=== PATIENT | female | born 1990 | race African-American/Black ===

== ENCOUNTER 2017-08-29 12:50 | Emergency (ER) | payer SELFPAY ==
[2017-08-29] MEDS ORDERED: Ibuprofen 800 MG TAB ONE (13:14)
--- NOTE | 2017-08-29 14:48 | RAD ---
CHEST PA AND LATERAL: History: 27-year-old female with history of cough, congestion, body aches, chills, and headache. FINDINGS: Heart size is within normal limits. The lungs are clear. No confluent pneumonia, overt edema, or pleu ral effusion. IMPRESSION: No acute intrathoracic disease. POS: [facility]
== END 2017-08-29 14:00 | disposition home or self-care (01) ==
LOC: NAV ERS 12:50
DX: J06.9 Acute upper respiratory infection, unspecified (principal)
CPT/HCPCS: 71046; 87804; 94640; J7620

== ENCOUNTER 2019-04-23 23:00 | Emergency (ER) | payer SELFPAY | END 2019-04-23 23:33 | disposition home or self-care (01) | LOC: NAV ERS 23:00 | DX: J11.1 Influenza due to unidentified influenza virus with other respiratory manifestations (principal); J06.9 Acute upper respiratory infection, unspecified; F17.290 Nicotine dependence, other tobacco product, uncomplicated | CPT/HCPCS: 99281 ==

== ENCOUNTER 2019-11-15 12:29 | Emergency (ER) | payer SELFPAY | END 2019-11-15 13:25 | disposition home or self-care (01) | LOC: NAV ERS 12:29 | DX: K04.4 Acute apical periodontitis of pulpal origin (principal); K02.9 Dental caries, unspecified; F17.290 Nicotine dependence, other tobacco product, uncomplicated | CPT/HCPCS: 99282 ==

== ENCOUNTER 2019-12-30 11:08 | Emergency (ER) | payer SELFPAY | END 2019-12-30 11:42 | disposition home or self-care (01) | LOC: NAV ERS 11:08 | DX: K02.9 Dental caries, unspecified (principal); F17.210 Nicotine dependence, cigarettes, uncomplicated | CPT/HCPCS: 99283 ==

== ENCOUNTER 2020-09-08 14:03 | Emergency (ER) | payer SELFPAY | END 2020-09-08 15:00 | disposition home or self-care (01) | LOC: NAV ERS 14:03 | DX: M77.8 Other enthesopathies, not elsewhere classified (principal); Z87.891 Personal history of nicotine dependence | CPT/HCPCS: 99283 ==

== ENCOUNTER 2020-12-30 08:54 | Emergency (ER) | payer SELFPAY | END 2020-12-30 09:32 | disposition home or self-care (01) | LOC: NAV ERS 08:54 | DX: R55 Syncope and collapse (principal); Z87.891 Personal history of nicotine dependence | CPT/HCPCS: 99283 ==

== ENCOUNTER 2021-01-06 14:25 | Emergency (ER) | payer SELFPAY | END 2021-01-06 15:15 | disposition home or self-care (01) | LOC: NAV ERS 14:25 | DX: H81.13 Benign paroxysmal vertigo, bilateral (principal); Z87.891 Personal history of nicotine dependence | CPT/HCPCS: 99283 ==

== ENCOUNTER 2021-01-09 20:13 | Emergency (ER) | payer OTHER, SELFPAY ==
[2021-01-09 20:53] LABS: #Basophils 0.2 thou/uL (0.0-0.2); #Eosinphils 0.2 thou/uL (0.0-0.7); #Lymphocytes 3.1 thou/uL (1.20-3.40); #Monocytes 0.5 thou/uL (0.11-0.59); #Neutrophils 2.8 thou/uL (1.40-6.50); %Basophils 2.6 % (0.0-1.0); %Eosinophils 2.8 % (0.0-10.0); %Lymphocytes 45.9 % (21.0-51.0); %Monocytes 7.4 % (0.0-10.0); %Neutrophils 41.3 % (42.0-75.0); Hemoglobin 10.1 g/dL (12.0-16.0); Mean Corpuscular HGB CONC 28.5 g/dL (32.0-36.0); Mean Corpuscular Volume 66.7 fL (78.0-98.0); Platelet Count 242 thou/uL (130-400); Red Blood Cell (RBC) Count 5.33 mill/uL (4.20-5.40); White Blood Cell (WBC) Count 6.7 thou/uL (4.8-10.8)
[2021-01-09 20:57] LABS: Prothrombin Time 12.8 sec (12.0-14.7)
[2021-01-09 21:00] LABS: BHCG - Serum Negative (NEGATIVE); Pregs Control Bar Appear? YES (CONTROL BAR)
[2021-01-09 21:03] LABS: ALT (SGPT) 9 U/L (8-55); AST (SGOT) 12 U/L (5-34); Albumin 4.2 g/dL (3.5-5.0); Alkaline Phosphatase 86 U/L (40-110); Anion Gap 13 mmol/L (10-20); BUN (Urea Nitrogen) 13 mg/dL (7.0-18.7); Bilirubin, Total 0.7 mg/dL (0.2-1.2); Calc. Creatinine Clearance 0 mL/min (70-130); Calcium 9.1 mg/dL (7.8-10.44); Carbon Dioxide 19 mmol/L (22-29); Chloride 108 mmol/L (98-107); Globulin 2.9 g/dL (2.4-3.5); Glucose 106 mg/dL (70-105); Potassium 3.4 mmol/L (3.5-5.1); Protein, Total 7.1 g/dL (6.0-8.3); Sodium 137 mmol/L (136-145)
[2021-01-09 21:39] LABS: Alcohol Less than 10 mg/dL (Less than 10); Lipase 24 U/L (8-78)
== END 2021-01-09 22:01 | disposition home or self-care (01) ==
LOC: NAV ERS 20:13
DX: S16.1XXA Strain of muscle, fascia and tendon at neck level, initial encounter (principal); D64.9 Anemia, unspecified; V89.2XXA Person injured in unspecified motor-vehicle accident, traffic, initial encounter
CPT/HCPCS: 71045; 80053; 80307; 83690; 84703; 85025; 85610; 85730; 93005; 94760

== ENCOUNTER 2021-04-18 08:43 | Emergency (ER) | payer SELFPAY ==
[2021-04-18] MEDS ORDERED: Ibuprofen 800 MG TAB ONE (09:33)
== END 2021-04-18 09:35 | disposition home or self-care (01) ==
LOC: NAV ERS 08:43
DX: M54.6 Pain in thoracic spine (principal)
CPT/HCPCS: 99283

== ENCOUNTER 2022-11-08 12:21 | Emergency (ER) | payer SELFPAY | END 2022-11-08 13:06 | disposition home or self-care (01) | LOC: NAV ERS 12:21 | DX: K02.9 Dental caries, unspecified (principal); F17.200 Nicotine dependence, unspecified, uncomplicated | CPT/HCPCS: 99282 ==

== ENCOUNTER 2023-01-04 18:00 | Emergency (ER) | payer SELFPAY ==
[2023-01-04] MEDS ORDERED: Acetaminophen 500 MG TAB ONE (18:42)
== END 2023-01-04 18:45 | disposition home or self-care (01) ==
LOC: NAV ERS 18:00
DX: K04.7 Periapical abscess without sinus (principal); K02.9 Dental caries, unspecified; F17.290 Nicotine dependence, other tobacco product, uncomplicated
CPT/HCPCS: 99282

== ENCOUNTER 2023-07-11 15:55 | Emergency (ER) | payer SELFPAY ==
[2023-07-11] MEDS ORDERED: Naproxen 500 MG TAB ONE (16:27)
[2023-07-11 16:46] LABS: Bilirubin Negative (Negative); Blood, Urine Negative (Negative); Clarity Clear (Clear); Glucose, Urine (Dipstick) Negative (Negative); Ketone, Urine Negative (Negative); Leukocyte Negative (Negative); Nitrite Negative (Negative); Protein, Urine (Dipstick) Negative (Neg-Trace); Urobilinogen 0.2 mg/dL (Less than 2)
[2023-07-11 16:52] LABS: CAUTI Indications for Culture Pelvic or flank pain; RBC/HPF 0-3 HPF (0-3); Squamous Epithelial 0-3 HPF (0-3); WBC/HPF None Seen HPF (0-3)
[2023-07-11 16:53] LABS: Urine Culture Reflex No No
[2023-07-11 17:09] LABS: #Basophils 0.1 thou/uL (0.0-0.2); #Eosinphils 0.2 thou/uL (0.0-0.7); #Lymphocytes 2.2 thou/uL (1.20-3.40); #Monocytes 0.5 thou/uL (0.11-0.59); #Neutrophils 2.6 thou/uL (1.40-6.50); %Eosinophils 3.2 % (0.0-10.0); %Lymphocytes 38.9 % (21.0-51.0); %Neutrophils 46.9 % (42.0-75.0); ALT (SGPT) 14 U/L (8-55); AST (SGOT) 16 U/L (5-34); Albumin 4.2 g/dL (3.5-5.0); Alkaline Phosphatase 80 U/L (40-110); Anion Gap 10 mmol/L (10-20); BUN (Urea Nitrogen) 8 mg/dL (7.0-18.7); Bilirubin, Total 0.7 mg/dL (0.2-1.2); Calc. Creatinine Clearance 0 mL/min (70-130); Carbon Dioxide 25 mmol/L (22-29); Chloride 106 mmol/L (98-107); Estimated GFR 118; Globulin 2.3 g/dL (2.4-3.5); Glucose 79 mg/dL (70-105); Hemoglobin 10.2 g/dL (12.0-16.0); Lipase 20 U/L (8-78); Mean Corpuscular HGB CONC 30.8 g/dL (32.0-36.0); Mean Corpuscular Hemoglobin 19.9 pg (27.0-31.0); Mean Corpuscular Volume 64.7 fl (78.0-98.0); Platelet Count 247 10x3/uL (130-400); Potassium 3.8 mmol/L (3.5-5.1); Protein, Total 6.5 g/dL (6.0-8.3); RBC Distribution Width 17.8 % (11.5-14.5); Sodium 137 mmol/L (136-145); White Blood Cell (WBC) Count 5.5 10x3/uL (4.8-10.8)
[2023-07-11 17:25] LABS: Pregnancy Test - Urine (BHCG) Negative (Negative); Pregu Control Background? CLEAR/WHITE (CLR/WHITE); Pregu Control Bar Appear? YES (CONTROL BAR)
== END 2023-07-11 17:28 | disposition home or self-care (01) ==
LOC: NAV ERS 15:55
DX: S39.012A Strain of muscle, fascia and tendon of lower back, initial encounter (principal); F17.210 Nicotine dependence, cigarettes, uncomplicated; X50.0XXA Overexertion from strenuous movement or load, initial encounter
CPT/HCPCS: 80053; 81001; 81025; 83690; 85025; 99283

== ENCOUNTER 2024-04-23 14:53 | Emergency (ER) | payer SELFPAY | END 2024-04-23 15:40 | disposition home or self-care (01) | LOC: NAV ERS 14:53 | DX: K04.7 Periapical abscess without sinus (principal); F17.290 Nicotine dependence, other tobacco product, uncomplicated | CPT/HCPCS: 99283 ==

== ENCOUNTER 2024-07-22 12:42 | Emergency (ER) | payer SELFPAY ==
[2024-07-22] MEDS ORDERED: Ibuprofen 800 MG TAB ONE (13:07)
[2024-07-22] MEDS ORDERED: Penicillin V Potassium 250 MG TAB ONE (13:07)
== END 2024-07-22 13:22 | disposition home or self-care (01) ==
LOC: NAV ERS 12:42
DX: S02.5XXA Fracture of tooth (traumatic), initial encounter for closed fracture (principal); K04.7 Periapical abscess without sinus; K02.9 Dental caries, unspecified; F17.200 Nicotine dependence, unspecified, uncomplicated; X58.XXXA Exposure to other specified factors, initial encounter
CPT/HCPCS: 99282